=== PATIENT | female | born 1960 | race Hispanic/Latino ===

== ENCOUNTER 2023-06-02 17:11 | Emergency (ER) | payer SELFPAY ==
[2023-06-02 17:15] VITALS: BP 142/91
[2023-06-02 17:42] LABS: % Basophils 0.4 % (0-2); % Eosinophils 0.3 % (0-6); % Immature Granulocytes 0.3 % (0-0.5); % Lymphocytes 21.9 % (20.5-51.1); % Monocytes 5.3 % (1.7-9.3); % Neutrophils 71.8 % (42.2-75.2); Absolute Basophils 0.1 10^3/uL (0-0.2); Absolute Lymphocytes 2.5 10^3/uL (1.2-3.4); Absolute Monocytes 0.6 10^3/uL (0.1-0.6); Hematocrit 39.5 % (37.0-47.0); Hemoglobin 13.7 g/dL (12.0-16.0); Mean Corp Hgb Conc. 34.7 g/dL (33.0-37.0); Mean Corpuscular Hgb 30.7 pg (27.0-31.0); Mean Corpuscular Volume 88.6 fL (81.0-99.0); Mean Platelet Volume 9.4 fL (7.4-10.4); Nucleated Red Blood Cells % 0 %; Platelet Count 278 10^3/uL (130-400); Red Blood Cell Count 4.46 10^6/uL (4.20-5.40); Red Cell Dist. Width 13.2 % (11.5-14.5); White Blood Cell Count 11.2 10^3/uL (4.8-10.8)
[2023-06-02 18:00] LABS: ALT (SGPT) 20 U/L (0-35); AST (SGOT) 22 U/L (14-36); Albumin 4.5 g/dl (3.5-5.0); Alkaline Phosphatase 79 U/L (38-126); Blood Urea Nitrogen 14 mg/dl (7-17); Calcium 9.1 mg/dl (8.4-10.2); Carbon Dioxide 26 mmol/L (22-30); Chloride 101 mmol/L (98-107); Glucose 113 mg/dl (70-99); Potassium 3.8 mmol/L (3.5-5.1); Sodium 137 mmol/L (135-145); Total Bilirubin 0.7 mg/dl (0.2-1.3); Total Protein 8.1 g/dl (6.3-8.2); eGFR > 60.00
[2023-06-02 18:16] LABS: Urine Albumin Negative (Neg - Trace); Urine Bilirubin Negative (Negative); Urine Character Slightly Cloudy (Clear); Urine Color Yellow; Urine Glucose Negative (Negative); Urine Ketone 2+ (Negative); Urine Leukocyte 1+ (Negative); Urine Nitrite Negative (Negative); Urine Occult Blood 3+ (Negative); Urine Urobilinogen Negative (Neg - 1+)
[2023-06-02 18:27] LABS: Urine Bacteria Moderate (Negative); Urine White Cell 80-90 /HPF (0-5)
--- NOTE | 2023-06-02 20:18 | ED.GENMED ---
Addendum entered and electronically signed by Lev Morales PA-C 06/06/23 07:55:
UCx shows 100k Ecoli, sensitive to TMP-SMX. No changes
Original Note:
History of Present Illness
General
Chief Complaint: Urinary Symptoms
Source: patient
Exam Limitations: none
Time Seen by Provider: 06/02/23 20:03
Travel History
Have you had any contact with someone who has COVID-19?: No
Do you have any symptoms of coronavirus? Fever > 100 degrees, chills, cough, shortness of breath, sore throat, loss of taste or smell, muscle aches, or headache?: No
History of Present Illness
History of Present Illness:
This is a 63 year old [place]serr[place]ian speaking family that comes in with c/o urinary symptoms. States that she as burning with urination. States that she has discomfort when she walks and that her back and uterus hurts. State that this started last
Thursday. States that today she is just feeling cold. States that she also has a headache. Denies any fever, chills, chest pain, SOB, nausea, vomiting, diarrhea, dizziness.
Past History
Past History
ED Past Medical History: NIDDM; Negative Asthma, HTN or Hypercholesterolemia
ED Past Surgical History: Gynecological (Tubal)
Social History
Tobacco: Non-smoker
Alcohol: None
Personal:
Living: with family
Review of Systems
Review of Systems
All Other Systems: ROS reviewed and negative except as documented in HPI and ROS
Constitutional: Reports no symptoms; Denies fever or chills
EENT: Reports no symptoms
Respiratory: Reports no symptoms; Denies cough or trouble breathing
Cardiac: Reports no symptoms; Denies chest pain
ABD/GI: Reports abdominal pain; Denies nausea, vomiting or diarrhea
: Reports dysuria; Denies frequency or urgency
Musculoskeletal: Reports no symptoms
Skin: Reports no symptoms
Neurological: Reports headache; Denies dizzy
Psychiatric: Reports no symptoms
Phy Exam
General Physical Exam
General Presentation: well appearing and no apparent distress
General age: appears stated age
General Skin: warm and dry
General Habitus: normal
General Mental: alert
General Hydration: appears well hydrated
ENT Exam
ENT Exam: TM's normal, pharynx normal and neck supple
Eye Exam
Eye Exam: EOMI
Cardiovascular Exam
Cardiovascular Exam: regular rate/rhythm, no edema, no murmur and normal peripheral pulses
Pulmonary Exam
Pulmonary Exam: lungs clear, no respiratory distress, no rales, chest non tender, no crackles, no rhonchi, no wheezing and no cough
Gastrointestinal Exam
Gastrointestinal Exam: normal bowel sounds, non tender, soft, no organomegaly, no pulsatile mass and non distended
Musculoskeletal Exam
Musculoskeletal Exam: full ROM and no edema
Skin Exam
Skin Exam: normal color, warm/dry, no rash and no petechia
Psychiatric Exam
Psychiatric Exam: normal mood/affect
Course
Orders/Labs/Results
Orders:
Orders
06/02/23 17:33
Complete Blood Count/With Diff Urgent
Comprehensive Metabolic Panel Urgent
Urinalysis Reflex To Culture Urgent
Date Specimen was Collected: 06/02/23
Time Specimen was Collected: 17:29
Urine Microscopic Reflex Cult Urgent
Urine Culture Urgent
CARMEN Source: U
Specimen Description:
Date Specimen was Collected: 06/02/23
Time Specimen was Collected: 17:29
06/02/23 20:17
Phenazopyridine HCl [Pyridium] 200 mg PO NOW STA
Sulfamethox./Trimethoprim Ds [Bactrim Ds 800 mg/160 mg] 1 tablet PO NOW STA
Abnormal Lab Results
06/02/23
17:33
WBC 11.2 H 10^3/uL
(4.8-10.8)
Absolute Neuts (auto) 8.0 H 10^3/uL
(1.4-6.5)
Creatinine 0.4 L mg/dL
(0.6-1.0)
Glucose 113 H mg/dl
(70-99)
Urine Ketones 2+ A
(Negative)
Ur Occult Blood Reflex 3+ A
(Negative)
Leukocyte Esterase Rfl 1+ A
(Negative)
Urine RBC 11-15 A /HPF
(0-2)
Urine WBC (Reflex) 80-90 A /HPF
(0-5)
Urine Bacteria (Reflex) Moderate A
(Negative)
06/02/23 17:33
06/02/23 17:33
WBC very slightly elevated. Glucose nonfasting. Urine positive for infection.
Vital Signs
Initial and Last Documented VS:
Initial Vital Signs
Temp Pulse Resp BP Pulse Ox
98.4 F 98 18 142/91 98
06/02/23 17:15 06/02/23 17:15 06/02/23 17:15 06/02/23 17:15 06/02/23 17:15
Last Documented Vital Signs
Temp Pulse Resp BP Pulse Ox
98.4 F 98 18 142/91 98
06/02/23 17:15 06/02/23 17:15 06/02/23 17:15 06/02/23 17:15 06/02/23 17:15
MDM/Problems Addressed
Differential Diagnosis Includes:
UTI,
MDM/Problems Addressed:
This is a 63 year old female that comes in with c/o burning with urination. States that this started on Thursday. States that she feels cold and has pain in the uterus.
Will get labs and urine.
Explained to patient that she has a urinary tract infection. Patient will be given antibiotics and Pyridium. Patient to follow up in the clinic for repeat Urine. Patient to return with fever, or any other concerns.
Chronic conditions affecting care: DM
Acute Exacerbation and/or Progression of Chronic Illness:
NA
*Pulse Oximetry
Patient hypoxic: no
*EKG
Interpreted by ED Provider?: NA
Rate: EKG- N/A
*Behavioral Instructor Interpretation
Rate: Behavioral Instructor- N/A
*Critical Care Note
Total Time (30-74mins, 75-104mins- exclusive of procedures): Not Applicable
ED Attending Note
-
Portions of this chart may have been created with voice recognition software.� Occasional wrong word or��sound alike� substitutions may have occurred due to the inherent limitations of voice recognition software.
Discharge Plan
Departure
Patient Disposition: Home (Routine Discharge)
Date of Disposition: 06/02/23
Time of Disposition: 20:25
Patient with high blood pressure during this ER visit?: Yes
Condition: Good
Covid-19: Not Applicable
Discharge Problem:
Urinary tract infection
Instructions: Urinary Tract Infection, Adult (DC), BLOOD PRESSURE
Prescriptions:
New
sulfamethoxazole-trimethoprim [Bactrim DS] 800-160 mg tablet
1 tab PO BID Qty: 13 0RF
Activity Restrictions/Additional Instructions:
As discussed your blood work shows that our White blood cell count is slightly elevated. This goes along with infection. Your urine is positive for infection. You have been given your first dose of antibiotic here and a prescription for home for the
next 7 days. You were also given a medication here to help with the pressure. This will turn your urine orange. Please increase your water intake to 8-8oz glasses daily. Follow up in the Clinic for a repeat urine after you are off the antibiotics.
IF YOU HAVE ANY FEVER, ABD PAIN, OR YOU HAVE ANY OTHER CONCERNS PLEASE RETURN TO THE EMERGENCY ROOM.
Interventions
Interventions:
*Risk Screen - Suicide Last Done: 06/02/23 17:15
*General Assessment Last Done: 06/02/23 17:15
*Neglect/Abuse Screening Last Done: 06/02/23 17:15
[2023-06-02] MEDS: Pyridium 200 MG PO (20:30)
[2023-06-02] MEDS: BACTRIM DS 800 MG/160 MG 1 TABLET PO (20:30)
[2023-06-02 20:40] VITALS: BP 134/83
== END 2023-06-02 20:41 | disposition home or self-care (01) ==
LOC: EMR 17:11
PROVIDERS: Emergency Medicine; EMERGENCY PHYSICIAN Emergency Medicine
DX: N39.0 Urinary tract infection, site not specified (principal)
CPT/HCPCS: 99283; 80053; 81003; 81015; 85025; 87086; 87088; 87186

== ENCOUNTER 2023-07-03 12:03 | Emergency (ER) | payer SELFPAY ==
[2023-07-03 12:08] VITALS: BP 126/79
--- NOTE | 2023-07-03 14:42 | ED.GENMED ---
History of Present Illness
General
Chief Complaint: Headache
Source: patient
Exam Limitations: none
Time Seen by Provider: 07/03/23 13:52
Nursing documentation reviewed up to this point in time: agreed with
Travel History
Have you had any contact with someone who has COVID-19?: No
Do you have any symptoms of coronavirus? Fever > 100 degrees, chills, cough, shortness of breath, sore throat, loss of taste or smell, muscle aches, or headache?: No
History of Present Illness
History of Present Illness:
63-year-old female who is prediabetic, uninsured, Latvian-speaking presents to the ER for 3 days of feeling overall body fatigue, muscle aches, a very mild headache in the posterior head with extension into her neck. She says she recently started
back to work where she works in [employer]. It is a very physical job. She had the winter off because of the weather. She worked 2 days this week and feels wiped out. She says she also feels the lack of energy and enjoyment in doing things that
normally make her happy like cooking. But she is not reporting any depressive thoughts, suicidal thoughts or overall stress/anxiety
but she is describing symptoms of feeling anxious, 'jittery, shaky' feeling in her upper shoulders
she also has some mild neck pain and eadache but this is minimal and relived with motrin she took a few days ago
pt says the reason she is here is to get checked out to figure out why she feels this way
she did not feel any worse today than the other 3 days
she did take 2 days ago when she had gradual headache which got better
she didn't take anything today
she has no reported dizziness despite triage saying she was dizzy, when i asked, she says she gets intermittent jittery feeling in her body and shakiness that is not visibl ebut she feels it inside
she is curious about her blood glucose level.
had UTI 1 mo ago and was treated with abx and feels symptoms resolved.
denies chest pain, sob, vision changes, balance changes, trouble speaking, weakness or numbness in arms or legs
Past History
Past History
ED Past Medical History: NIDDM; Negative Asthma, HTN or Hypercholesterolemia
ED Past Surgical History: Gynecological (Tubal)
Social History
Tobacco: Non-smoker
Alcohol: None
Personal:
Living: with family
Review of Systems
Review of Systems
Allergies reviewed?: Yes
All Other Systems: Not applicable
Phy Exam
Physical Exam
Physical Exam:
GENERAL: Alert , in no apparent distress
EYE: pupils equal and reactive
NECK: Supple
ENT: o/p clr, mmm.
CARDIAC: Regular rate and rhythm .
LUNGS: Clear breath sounds bilaterally, no acute respiratory distress, no wheezes/rales/rhonchi
ABDOMEN: Soft, without focal tenderness, no r/g, no cvat, normal bowel sounds
NEUROLOGICAL: Alert and oriented, no focal neuro deficits
SKIN: Warm and dry, skin intact.
MUSCULOSKELETAL: No edema, well perfused. neg maximino's sign
PSYCH: Normal and appropriate interaction.
Course
Orders/Labs/Results
Orders:
Orders
07/03/23 14:26
Electrocardiogram (*1) Urgent
Reason for Study: Fatigue / Weakness
EKG- Treatment ONCE
07/03/23 14:54
Basic Metabolic Panel Urgent
Complete Blood Count/With Diff Urgent
Comprehensive Metabolic Panel Urgent
Comment: ADDED TO TSH SPECIMEN
Magnesium Urgent
Comment: ADDED TO TSH SPECIMEN
TSH Reflex To Free T4 Urgent
Troponin I Urgent
07/03/23 15:15
Urinalysis Reflex To Culture Urgent
Date Specimen was Collected: 07/03/23
Time Specimen was Collected: 15:14
Urine Microscopic Reflex Cult Urgent
07/03/23 15:53
CT Head W/o Iv Contrast Urgent
Comment:
Reason For Exam: FATIGUE, HEADACHE
Ketorolac [Toradol] 15 mg IV NOW STA
Abnormal Lab Results
07/03/23 07/03/23 07/03/23
14:54 14:54 15:15
Creatinine 0.4 L mg/dL 0.4 L mg/dL
(0.6-1.0) (0.6-1.0)
Leukocyte Esterase Rfl Trace A
(Negative)
07/03/23 14:54
07/03/23 14:54
Vital Signs
Initial and Last Documented VS:
Initial Vital Signs
Temp Pulse Resp BP Pulse Ox
98.1 F 63 18 126/79 95
07/03/23 12:08 07/03/23 12:08 07/03/23 12:08 07/03/23 12:08 07/03/23 12:08
Last Documented Vital Signs
Temp Pulse Resp BP Pulse Ox
98.1 F 63 18 136/78 94
07/03/23 12:08 07/03/23 12:08 07/03/23 12:08 07/03/23 18:06 07/03/23 18:15
MDM/Problems Addressed
Differential Diagnosis Includes:
fatigue, tension headache, viral syndrome, hyperglycemia
MDM/Problems Addressed:
63 y/o F with prediabetes
here with 3 days generalized fatigue, feels jittery, sometimes with a shock like discomfort in her shoulders and neck that comes and goes
sometimes with a mild headache, never thunderlamp, never severe
started after margareth copygram to work after taking the winter off
works in the [employer] doing [employer]
she was concerned maybe her BG was elevated
she hs not had any dizziness despite triage note
no vision changes, severe neck pain, cp, sob, focal weakness/numbness,
on exam sh really has no findings
nontender neck
full painelss rom
neuro normal
heart/lungs clear
ekg, labs, ct head unremarkable
unclear cuase for symptoms
she feels well enough to go home
f/u with [facility] for persisstnet fatigue
*Critical Care Note
Total Time (30-74mins, 75-104mins- exclusive of procedures): Not Applicable
ED Attending Note
-
Portions of this chart may have been created with voice recognition software.� Occasional wrong word or��sound alike� substitutions may have occurred due to the inherent limitations of voice recognition software.
Discharge Plan
Departure
Patient Disposition: Home (Routine Discharge)
Date of Disposition: 07/03/23
Time of Disposition: 18:14
Patient with high blood pressure during this ER visit?: No
Condition: Fair
Discharge Problem:
Fatigue, Headache, tension-type
Instructions: Fatigue (DC), Tension Headache (DC)
Prescriptions:
No Action
sulfamethoxazole-trimethoprim [Bactrim DS] 800-160 mg tablet
1 tab PO BID Qty: 13 0RF
Referrals:
[facility] - Follow up in 5-7 days
NONE,* [Family Provider] -
Activity Restrictions/Additional Instructions:
we are not sure the cause of your symptoms but you had no sign of urine infection, your blood work was normal, your blood sugar was normal, and your cat scan was negative. follow up with the [facility]
try tylenol or motrin for pain as needed
return for: severe headache/neck pain ,dizziness, chest pain, passing out, weakness or any concerns.
No estamos seguros de la causa de disha s�ntomas, shannan no tuvo signos de infecci�n de orina, will an�lisis de desmond fue normal, will nivel de az�car en desmond fue normal y will gammagraf�a fue negativa. seguimiento con la [facility]
pruebe tylenol o motrin para el dolor seg�n sea necesario
Regrese por: dolor de nadine/faizan intenso, mareos, dolor en el pecho, desmayos, debilidad o cualquier inquietud.
Interventions
Interventions:
*Risk Screen - Suicide Last Done: 07/03/23 17:24
*General Assessment Last Done: 07/03/23 17:23
*Neglect/Abuse Screening Last Done: 07/03/23 17:24
ED- Fall Risk Assessment Last Done: 07/03/23 18:30
*ED COVID-19 Vaccine History Last Done: 07/03/23 17:23
*Nursing Disposition Last Done: 07/03/23 18:30
ED- Neurological Assessment Last Done: 07/03/23 16:15
Discharge Date and Time
Discharge Date/Time: 07/03/23 18:30
Print Language: POLISH
[2023-07-03 15:03] LABS: % Basophils 0.8 % (0-2); % Eosinophils 3.2 % (0-6); % Immature Granulocytes 0.1 % (0-0.5); % Lymphocytes 44.8 % (20.5-51.1); % Monocytes 5.5 % (1.7-9.3); % Neutrophils 45.6 % (42.2-75.2); Absolute Basophils 0.1 10^3/uL (0-0.2); Absolute Eosinophils 0.2 10^3/uL (0-0.7); Absolute Lymphocytes 3.3 10^3/uL (1.2-3.4); Absolute Monocytes 0.4 10^3/uL (0.1-0.6); Absolute Neutrophils 3.4 10^3/uL (1.4-6.5); Hematocrit 38.4 % (37.0-47.0); Hemoglobin 13.1 g/dL (12.0-16.0); Mean Corp Hgb Conc. 34.1 g/dL (33.0-37.0); Mean Corpuscular Hgb 30.5 pg (27.0-31.0); Mean Corpuscular Volume 89.3 fL (81.0-99.0); Mean Platelet Volume 9.6 fL (7.4-10.4); Nucleated Red Blood Cells % 0 %; Platelet Count 252 10^3/uL (130-400); Red Cell Dist. Width 13.8 % (11.5-14.5); White Blood Cell Count 7.4 10^3/uL (4.8-10.8)
[2023-07-03 15:18] VITALS: BP 127/78
[2023-07-03 15:24] LABS: Blood Urea Nitrogen 16 mg/dl (7-17); Calcium 9.3 mg/dl (8.4-10.2); Carbon Dioxide 25 mmol/L (22-30); Chloride 107 mmol/L (98-107); Glucose 94 mg/dl (70-99); Sodium 136 mmol/L (135-145); eGFR > 60.00
[2023-07-03 15:30] LABS: Troponin I < 0.012 ng/ml
[2023-07-03 15:35] LABS: Urine Albumin Negative (Neg - Trace); Urine Bilirubin Negative (Negative); Urine Character Clear (Clear); Urine Color Straw; Urine Glucose Negative (Negative); Urine Ketone Negative (Negative); Urine Leukocyte Trace (Negative); Urine Nitrite Negative (Negative); Urine Occult Blood Negative (Negative); Urine Urobilinogen Negative (Neg - 1+)
[2023-07-03 15:46] LABS: Urine Red Blood Cell 0-2 /HPF (0-2); Urine Squamous Cell 16-20 /LPF (Few)
[2023-07-03 15:49] LABS: TSH Reflex To Free T4 1.23 uIU/ml (0.47-4.68)
[2023-07-03 16:00] VITALS: BP 126/71
[2023-07-03 16:06] LABS: ALT (SGPT) 19 U/L (0-35); AST (SGOT) 27 U/L (14-36); Albumin 4.2 g/dl (3.5-5.0); Alkaline Phosphatase 63 U/L (38-126); Blood Urea Nitrogen 16 mg/dl (7-17); Calcium 9.5 mg/dl (8.4-10.2); Carbon Dioxide 23 mmol/L (22-30); Chloride 104 mmol/L (98-107); Glucose 95 mg/dl (70-99); Magnesium 2.2 mg/dl (1.6-2.3); Sodium 137 mmol/L (135-145); Total Bilirubin 0.6 mg/dl (0.2-1.3); Total Protein 7.4 g/dl (6.3-8.2); eGFR > 60.00
[2023-07-03] MEDS: TORADOL 15 MG IV (16:14)
[2023-07-03 17:00] VITALS: BP 128/71
[2023-07-03 18:06] VITALS: BP 136/78
== END 2023-07-03 18:30 | disposition home or self-care (01) ==
LOC: EMR 12:03
PROVIDERS: Physician Assistant; EMERGENCY PHYSICIAN Emergency Medicine
DX: R53.83 Other fatigue (principal); G44.209 Tension-type headache, unspecified, not intractable
CPT/HCPCS: 99284; 96374; 70450; 80048; 80053; 81003; 81015; 83735; 84443; 84484; 85025; 93005

== ENCOUNTER → 2023-10-24 07:57 | Outpatient (REF) | payer OTHER, SELFPAY ==
[2023-10-24 09:46] LABS: Hematocrit 40.4 % (37.0-47.0); Hemoglobin 13.8 g/dL (12.0-16.0); Mean Corp Hgb Conc. 34.2 g/dL (33.0-37.0); Mean Corpuscular Hgb 30.9 pg (27.0-31.0); Mean Corpuscular Volume 90.4 fL (81.0-99.0); Mean Platelet Volume 10.2 fL (7.4-10.4); Platelet Count 260 10^3/uL (130-400); Red Blood Cell Count 4.47 10^6/uL (4.20-5.40); Red Cell Dist. Width 13.3 % (11.5-14.5); White Blood Cell Count 6.7 10^3/uL (4.8-10.8)
[2023-10-24 10:21] LABS: ALT (SGPT) 15 U/L (0-35); AST (SGOT) 20 U/L (14-36); Albumin 4.3 g/dl (3.5-5.0); Alkaline Phosphatase 65 U/L (38-126); Blood Urea Nitrogen 15 mg/dl (7-17); Carbon Dioxide 26 mmol/L (22-30); Chloride 105 mmol/L (98-107); Glucose 95 mg/dl (70-99); HDL Cholesterol 54 mg/dl; LDL Cholesterol, Calculated 118 mg/dl; Potassium 4.2 mmol/L (3.5-5.1); Sodium 139 mmol/L (135-145); Total Bilirubin 0.6 mg/dl (0.2-1.3); Total Cholesterol 195 mg/dl (50-199); Total Protein 7.2 g/dl (6.3-8.2); Triglyceride 119 mg/dl (10-149); Very Low Density Lipoprotein 23 mg/dl (0-30); eGFR > 60.00
[2023-10-24 15:29] LABS: Glycohemoglobin (HgbA1c) 6.1 % (4.0-5.6)
[2023-10-26 02:43] LABS: H. pylori Breath Test Positive (Negative)
== END ==
LOC: CLINIC 07:57
PROVIDERS: ATTENDING PHYSICIAN Nurse Practitioner Adult Health
DX: R73.03 Prediabetes (principal); Z00.00 Encounter for general adult medical examination without abnormal findings; R10.13 Epigastric pain
CPT/HCPCS: 80053; 80061; 83013; 83036; 85027

== ENCOUNTER → 2024-02-03 11:41 | Outpatient (REF) | payer OTHER, SELFPAY | LOC: CLINIC 11:41 | PROVIDERS: ATTENDING PHYSICIAN Obstetrics & Gynecology Gynecology | DX: Z01.419 Encounter for gynecological examination (general) (routine) without abnormal findings (principal) | CPT/HCPCS: G0123 ==

== ENCOUNTER 2024-03-20 09:12 | Emergency (ER) | payer OTHER, SELFPAY ==
[2024-03-20 09:24] VITALS: BP 128/74
[2024-03-20 09:49] LABS: COVID-19 Antigen Negative (Negative)
[2024-03-20 11:02] LABS: Glucose - Point of Care 122 mg/dl (70-99)
--- NOTE | 2024-03-20 11:04 | ED.GENMED ---
History of Present Illness
General
Chief Complaint: Throat Problem
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
Exam Limitations: none
Time Seen by Provider: 03/20/24 10:45
Nursing documentation reviewed up to this point in time: agreed with
History of Present Illness
History of Present Illness:
64-year-old female prediabetic on no meds presents with 3 days of sore throat, painful swallowing, swollen glands, headache, subjective fever and chills. She is not coughing. She has no nasal congestion. She feels generalized bodyaches but no
focal abdominal pain. No nausea vomiting or diarrhea. She took last Motrin last evening and says it does not help. There has been no voice change
Past History
Past History
ED Past Medical History: NIDDM; Negative Asthma, HTN or Hypercholesterolemia
ED Past Surgical History: Gynecological (Tubal)
Social History
Tobacco: Non-smoker
Alcohol: None
Personal:
Living: with family
Review of Systems
Review of Systems
Allergies reviewed?: Yes
All Other Systems: Not applicable
Phy Exam
Physical Exam
Physical Exam:
GENERAL: Alert , in no apparent distress
EYE: pupils equal and reactive
NECK: Supple tender swollen bilateral tonsillar lymphadenopathy
ENT: b/l TM s clear, moderate pharyngeal erythema and bilateral tonsillar hypertrophy 3+ with exudates mostly on the right side but also slight on the left, no other oral lesions, tolerating secretions, phonation normal, no muffling of the voice.
CARDIAC: Regular rate and rhythm, no edema
LUNGS: Clear breath sounds bilaterally, no acute respiratory distress, no wheezes/rales/rhonchi, occ cough
ABDOMEN: Soft, without focal tenderness, no r/g, no cvat, normal bowel sounds
SKIN: Warm and dry, skin intact.
MUSCULOSKELETAL: No edema, well perfused.
PSYCH: Normal and appropriate interaction.
Course
Orders/Labs/Results
Orders:
Orders
03/20/24 09:29
COVID-19 Antigen Urgent
Source: Nasal Swab
Influenza A+B Rapid Molecular Urgent
CARMEN Source: Nasal Swab
Specimen Description:
Date Specimen was Collected: 03/20/24
Time Specimen was Collected: :
Rapid Strep Group A Urgent
CARMEN Source: Throat/Pharynx
Specimen Description:
Date Specimen was Collected: 03/20/24
Time Specimen was Collected: :
03/20/24 11:03
Acetaminophen [Tylenol] 650 mg PO NOW STA
Amoxicillin 875 mg/Clav 125 mg [Augmentin 875 mg/125 mg] 1 tablet PO NOW STA
Dexamethasone [Decadron] 10 mg PO NOW STA
Ibuprofen [Motrin] 600 mg PO NOW STA
Abnormal Lab Results
03/20/24
11:00
POC Glucose 122 H mg/dl
(70-99)
Vital Signs
Initial and Last Documented VS:
Initial Vital Signs
Temp Pulse Resp BP Pulse Ox
38.1 C H 88 18 128/74 99
03/20/24 09:24 03/20/24 09:24 03/20/24 09:24 03/20/24 09:24 03/20/24 09:24
Last Documented Vital Signs
Temp Pulse Resp BP Pulse Ox
38.1 C H 88 18 128/74 99
03/20/24 09:24 03/20/24 09:24 03/20/24 09:24 03/20/24 09:24 03/20/24 09:24
MDM/Problems Addressed
Differential Diagnosis Includes:
Strep, viral URI, mono, tonsillar abscess
MDM/Problems Addressed:
64-year-old English-speaking female interviewed with the roller turner here with 3 days of fever, sore throat, swollen glands, no cough. She has 4 out of 4 Centor criteria but a negative rapid strep. Will cover with antibiotics. Her Accu-Chek is
122, will give her a dose of dexamethasone which will help with the swelling and inflammation. Ibuprofen, Tylenol, Augmentin twice daily
No signs of a peritonsillar abscess
*Critical Care Note
Total Time (30-74mins, 75-104mins- exclusive of procedures): Not Applicable
ED Attending Note
-
Portions of this chart may have been created with voice recognition software.� Occasional wrong word or��sound alike� substitutions may have occurred due to the inherent limitations of voice recognition software.
Discharge Plan
Departure
Patient Disposition: Home (Routine Discharge)
Date of Disposition: 03/20/24
Time of Disposition: 11:07
Patient with high blood pressure during this ER visit?: No
Condition: Fair
Covid-19: Negative COVID-19
Discharge Problem:
Tonsillitis
Instructions: Sore throat in adults - ED discharge instructions
Prescriptions:
New
amoxicillin-pot clavulanate 875-125 mg tablet
1 tab PO BID Qty: 14 0RF
No Action
sulfamethoxazole-trimethoprim [Bactrim DS] 800-160 mg tablet
1 tab PO BID Qty: 13 0RF
Activity Restrictions/Additional Instructions:
Your rapid strep was negative today but were treating you for strep throat with Augmentin twice a day for 7 days. Drink fluids to stay hydrated. Tylenol every 6 hours, ibuprofen every 8 hours for pain. Use throat lozenges. You were given a dose
of steroids to help with the inflammation. Avoid excess sugar today as much as you can. Follow-up with your family doctor in the next couple of days. Return for inability to swallow, voice change, trouble breathing, neck stiffness, high fever etc.
Tested negative for flu and COVID
Interventions
Interventions:
*Risk Screen - Suicide Last Done: 03/20/24 09:24
*General Assessment Last Done: 03/20/24 09:24
*Neglect/Abuse Screening Last Done: 03/20/24 11:02
*ED COVID-19 Vaccine History Last Done: 03/20/24 09:24
ED-EENT Assessment Last Done: 03/20/24 11:03
ED- Pulmonary Assessment Last Done: 03/20/24 11:03
Discharge Date and Time
Print Language: GUATEMAL[place]
[2024-03-20] MEDS: MOTRIN 600 MG PO (11:07)
[2024-03-20] MEDS: AUGMENTIN 875 MG/125 MG 1 TABLET PO (11:07)
[2024-03-20] MEDS: TYLENOL 650 MG PO (11:07)
[2024-03-20] MEDS: DECADRON 10 MG PO (11:08)
[2024-03-20 11:37] VITALS: BP 131/76
== END 2024-03-20 11:38 | disposition home or self-care (01) ==
LOC: EMR 09:12
PROVIDERS: Emergency Medicine; EMERGENCY PHYSICIAN Emergency Medicine
DX: J03.90 Acute tonsillitis, unspecified (principal); Z11.52 Encounter for screening for COVID-19
CPT/HCPCS: 99283; 82962; 87070; 87502; 87811; 87880

== ENCOUNTER → 2024-10-08 08:08 | Outpatient (REF) | payer OTHER, SELFPAY ==
[2024-10-08 09:43] LABS: Hematocrit 39.4 % (37.0-47.0); Hemoglobin 13.0 g/dL (12.0-16.0); Mean Corp Hgb Conc. 33.0 g/dL (33.0-37.0); Mean Corpuscular Volume 92.3 fL (81.0-99.0); Platelet Count 275 10^3/uL (130-400); Red Cell Dist. Width 13.9 % (11.5-14.5)
[2024-10-08 10:01] LABS: Glycohemoglobin (HgbA1c) 6.0 % (4.0-5.6)
[2024-10-08 10:16] LABS: ALT (SGPT) 14 U/L (0-35); AST (SGOT) 18 U/L (14-36); Albumin 4.4 g/dl (3.5-5.0); Alkaline Phosphatase 62 U/L (38-126); Blood Urea Nitrogen 19 mg/dl (7-17); Calcium 8.8 mg/dl (8.4-10.2); Carbon Dioxide 26 mmol/L (22-30); Chloride 110 mmol/L (98-107); Glucose 96 mg/dl (70-99); HDL Cholesterol 53 mg/dl; LDL Cholesterol, Calculated 136 mg/dl; Potassium 5.1 mmol/L (3.5-5.1); Sodium 141 mmol/L (135-145); Total Protein 7.5 g/dl (6.3-8.2); Very Low Density Lipoprotein 16 mg/dl (0-30); eGFR > 60.00
== END ==
LOC: CLINIC 08:08
PROVIDERS: ATTENDING PHYSICIAN Nurse Practitioner Adult Health
DX: Z00.00 Encounter for general adult medical examination without abnormal findings (principal); R73.03 Prediabetes; E78.00 Pure hypercholesterolemia, unspecified
CPT/HCPCS: 36415; 80053; 80061; 83036; 84443; 85027